=== PATIENT | female | born 1960 | race Two or more races ===

== ENCOUNTER 2023-09-25 19:42 | Emergency (ER) | payer OTHER ==
[~2023-09-25] VITALS: Ht 149.9 cm; Wt 77.1 kg
[2023-09-25] MEDS ORDERED: XIGDUO XR 10 M1 EACH PO (19:49)
[2023-09-25] MEDS ORDERED: TOPROL XL50 M1 PO (19:49)
[2023-09-25 21:21] LABS: PH,URINE 5.5 (5.0-8.0); URINE APPEARANCE Clear; URINE BILIRRUBIN Negative (NEGATIVE); URINE BLOOD Negative; URINE COLOR Yellow; URINE LEUKOCYTE Negative; URINE NITRATE Positive; URINE PROTEIN Negative (NEGATIVE); URINE UROBILINOGEN 0.2 E.U./dl
[2023-09-25 21:22] LABS: HEMOGLOBIN 14.6 g/dL (12.0-15.00); MEAN CELL VOLUME 89.7 fL (80.00-100.00); MEAN CORPUSCULAR HEMOGLOBIN 29.8 pg (27.00-32.0); MEAN CORPUSCULAR HGB CONC 33.2 g/dl (32.0-36.0); PLATELET COUNT 278 K/uL (150-450); RED BLOOD COUNT 4.91 M/uL (4.00-6.00); RED CELL DISTRIBUTION WIDTH 14.7 % (11.5-14.5)
[2023-09-25 21:24] LABS: URINE EPITHELIAL CELLS 11.4 uL (0.0-38.8); URINE RBC 2.5 uL (0.0-20.8); URINE WBC 14.3 uL (0.0-23.2)
[2023-09-25 21:27] LABS: URINE BACTERIA > 9821.5 uL (0.0-1933); URINE GLUCOSE >=1000 MG/DL (NEGATIVE)
[2023-09-25 21:39] LABS: CALCIUM 9.5 mg/dL (8.5-10.1); CREATININE SERUM 1.08 mg/dL (0.55-1.02); GFR 51.57; POTASSIUM 4.26 mEq/L (3.5-5.1)
== END 2023-09-25 22:47 | disposition home or self-care (01) ==
LOC: ER 19:43
PROVIDERS: General Practice
DX: N39.0 Urinary tract infection, site not specified (principal); R51.9 Headache, unspecified; I10 Essential (primary) hypertension; E11.65 Type 2 diabetes mellitus with hyperglycemia; Z79.84 Long term (current) use of oral hypoglycemic drugs
CPT/HCPCS: 36415; 96372; 99284; J0696; J1815